=== PATIENT | female | born 1965 | race African-American/Black ===

== ENCOUNTER 2017-05-28 08:39 | Emergency (ER) | payer OTHER ==
[~2017-05-28] VITALS: Ht 160 cm; Wt 79.8 kg
[~2017-05-28 08:39] MED LIST: HYDROCHLOROT12.5 M1 PO; METRONIDAZOL500 MG PO; NAPROSYN500 MG OR; NAPROSYN500 MG PO; NECON1 TAB PO; NORCO1 TA1 PO; NORVASC10 M1 PO; TORADOL OR
[2017-05-28] MEDS ORDERED: LYRICA25 MG PO (08:56)
[2017-05-28] MEDS ORDERED: MELOXICAM7.5 MG PO (08:57)
[2017-05-28] MEDS ORDERED: OMEPRAZOLE10 MG PO (08:58)
[2017-05-28] MEDS ORDERED: PREDNISONE5 MG PO (08:59)
[2017-05-28] MEDS ORDERED: REMICADE INJ100 MG IV (09:34)
[2017-05-28] MEDS ORDERED: ULTRAM50 M1 PO (10:00)
[2017-05-28] MEDS ORDERED: FLEXERIL PO (10:00)
[2017-05-28 10:10] VITALS: BP 159/74
== END 2017-05-28 10:10 | disposition home or self-care (01) | DRG 554 ==
LOC: ED 08:39
DX: M19.012 Primary osteoarthritis, left shoulder (principal); M25.512 Pain in left shoulder

== ENCOUNTER 2018-06-14 16:38 | Emergency (ER) | payer OTHER ==
[~2018-06-14] VITALS: Ht 160 cm; Wt 75.0 kg
[~2018-06-14 16:38] MED LIST changes: +FLEXERIL PO; +LYRICA25 MG PO; +MELOXICAM7.5 MG PO; +OMEPRAZOLE10 MG PO; +PREDNISONE5 MG PO; +REMICADE INJ100 MG IV; +ULTRAM50 M1 PO
[2018-06-14] MEDS ORDERED: LYRICA100 MG PO (17:12)
[2018-06-14] MEDS ORDERED: LORATADINE10 M4 PO (17:13)
[2018-06-14] MEDS ORDERED: CITALOPRAM HYDR10 MG PO (17:14)
[2018-06-14] MEDS ORDERED: MELOXICAM15 MG PO (17:19)
[2018-06-14 17:55] VITALS: BP 141/79
== END 2018-06-14 17:55 | disposition home or self-care (01) ==
LOC: ED 16:38
DX: M79.644 Pain in right finger(s) (principal); F17.210 Nicotine dependence, cigarettes, uncomplicated

== ENCOUNTER 2018-07-15 12:53 | Emergency (ER) | payer OTHER ==
[~2018-07-15] VITALS: Ht 160 cm; Wt 75.0 kg
[~2018-07-15 12:53] MED LIST changes: +CITALOPRAM HYDR10 MG PO; +LORATADINE10 M4 PO; +LYRICA100 MG PO; +MELOXICAM15 MG PO
[2018-07-15] MEDS ORDERED: PERCOGESI1 PO (14:29)
[2018-07-15 14:40] VITALS: BP 131/74
== END 2018-07-15 14:40 | disposition home or self-care (01) ==
LOC: ED 12:53
DX: M79.644 Pain in right finger(s) (principal); K50.90 Crohn's disease, unspecified, without complications; F17.210 Nicotine dependence, cigarettes, uncomplicated; W22.8XXA Striking against or struck by other objects, initial encounter; Y93.89 Activity, other specified; Y92.009 Unspecified place in unspecified non-institutional (private) residence as the place of occurrence of the external cause

== ENCOUNTER 2021-08-01 10:51 | Emergency (ER) | payer OTHER ==
[~2021-08-01] VITALS: Ht 160 cm; Wt 85.0 kg
[~2021-08-01 10:51] MED LIST changes: +MEDDOSEPAK PO; +PERCOGESI1 PO
[2021-08-01] MEDS ORDERED: ORPHENADRINE100 MG PO (14:21)
[2021-08-01 14:57] VITALS: BP 137/83
== END 2021-08-01 14:57 | disposition home or self-care (01) ==
LOC: ED 10:51
DX: M79.605 Pain in left leg (principal); G89.29 Other chronic pain; I10 Essential (primary) hypertension; F17.200 Nicotine dependence, unspecified, uncomplicated

== ENCOUNTER 2022-12-01 06:07 | Emergency (ER) | payer OTHER ==
[~2022-12-01] VITALS: Ht 165.1 cm; Wt 86.1 kg
[2022-12-01] VITALS (30 sets, daily range): BP systolic 148–198; BP diastolic 93–133
[~2022-12-01 06:07] MED LIST changes: +ORPHENADRINE100 MG PO
[2022-12-01] MEDS ORDERED: HYDROXYZ HCL25 MG PO (06:41)
[2022-12-01] MEDS ORDERED: OMEPRAZOLE DR40 MG PO (06:42)
[2022-12-01] MEDS ORDERED: LOSARTAN POTASS50 MG PO (06:43)
[2022-12-01] MEDS ORDERED: CITALOPRAM20 MG PO (06:44)
[2022-12-01 06:45] LABS: BASO% 0.1 % (0-3); EOS% 0.1 % (0-8); HEMATOCRIT 29.3 % (37.0-47.0); HEMOGLOBIN 9.1 g/dl (12.0-16.0); IMMATURE GRANULOCYTES 0.2 % (0.0-5.0); LYMPH% 30.9 % (15-41); MEAN CELL VOLUME 63.3 fL CALC (80.0-100.0); MEAN CORPUSCULAR HGB 19.7 pG CALC (26.0-32.0); MEAN CORPUSCULAR HGB CONC 31.1 g/dL CAL (32.0-36.0); NEUT# 5.88 thou/uL (2.00-7.15); NEUT% 59.7 % (42-76); RED BLOOD COUNT 4.63 mill/uL (4.20-5.60); RED CELL DISTRI WIDTH 16.3 % (11.5-15.5)
[2022-12-01] MEDS ORDERED: LYRICA50 MG PO (06:46)
[2022-12-01] MEDS ORDERED: PROVENTIL HFA108 MCG (06:47)
[2022-12-01 06:57] LABS: ALBUMIN 3.1 g/dL (3.2-5.0); BUN 23 mg/dL (7-17); BUN/CREATININE RATIO 24 (12-20 (CALC)); CHLORIDE 109 mmol/l (95-108); GFR FOR AFR.AMER. > 60 ML/MIN (>=60 (CALC)); GFR OTHER RACES 57 ML/MIN (>=60 (CALC)); SGOT/AST 42 u/l (14-36); SODIUM 135 mmol/l (137-146); TOTAL PROTEIN 6.6 g/dL (6.3-8.2)
[2022-12-01 07:01] LABS: ALKALINE PHOSPHATASE 167 u/l (38-126); ANION GAP 10 (6-22 (CALC)); BILIRUBIN, TOTAL 0.6 mg/dL (0.02-1.3); CARBON DIOXIDE 20 mmol/l (22-30)
[2022-12-01 10:31] LABS: URINE BILIRUBIN - DIPSTICK NEGATIVE (NEGATIVE); URINE BLOOD DIPSTICK NEGATIVE (NEGATIVE); URINE COLOR YELLOW; URINE GLUCOSE - DIPSTICK NEGATIVE (NEGATIVE); URINE KETONE NEGATIVE (NEGATIVE); URINE LEUK ESTERASE NEGATIVE (NEGATIVE); URINE PH 5.5 (4.5-8.0); URINE PROTEIN - DIPSTICK 30 mg/dL (NEG-TRACE); URINE SPECIFIC GRAVITY 1.015; URINE UROBILINOGEN - DIPSTICK 0.2 E.U./dL (0.2)
[2022-12-01 10:41] LABS: URINE EPITHELIAL CELLS FEW EPI/hpf (0-FEW); URINE MUCUS MODERATE hpf (NONE-FEW); URINE NITRITE - DIPSTICK NEGATIVE (Negative)
== END 2022-12-01 12:00 | disposition short-term general hospital (02) ==
LOC: ED 06:07
PROVIDERS: Emergency Medicine
DX: I11.0 Hypertensive heart disease with heart failure (principal); I50.9 Heart failure, unspecified; K50.90 Crohn's disease, unspecified, without complications; F17.200 Nicotine dependence, unspecified, uncomplicated; M06.9 Rheumatoid arthritis, unspecified; Z20.822 Contact with and (suspected) exposure to COVID-19
CPT/HCPCS: Q9967